=== PATIENT | female | born 1940 | race Hispanic/Latino ===

== ENCOUNTER 2019-04-04 21:34 | Inpatient (IN) | payer MEDICARE, MEDICAID ==
[2019-04-04] MEDS ORDERED: Sodium Chloride 0.9% 1,000 ML IV STA ×3 (21:43→21:54)
[2019-04-04] MEDS ORDERED: metroNIDAZOLE 500mg/100ml NS 100 ML IVPB STA (21:50)
[2019-04-04] MEDS ORDERED: metroNIDAZOLE 500mg/100ml NS 100 ML IVPB ONE (22:00)
--- NOTE | 2019-04-04 22:24 | ED PDOC ---
HPI: Abdomen Time Seen by Provider: 04/04/19 21:42 Chief Complaint (Nursing): Abdominal Pain Chief Complaint (Provider): GI Problem History Per: Patient History/Exam Limitations: no limitations Onset/Duration Of Symptoms: Days Current Symptoms Are (Timing): Still Present Additional Complaint(s): 78 y/o female with a PMHx of HTN and DM presents to the ED for ev aluation of weakness. Patient was recently hospitalized for about four days at [facility] for severe vomiting and diarrhea secondary to salmonella infection. Patient was discharged on Tuesday (about three days ago). Patient reports of taking Flagel today. Patient notes of having experienced multiple episodes of non-bloody, non-bilious acute vomiting and non-blood diarrhea associated with being extremely weak and dizziness. On arrival to the ER, patient was noted to be hypotensive. PMD: Sienna Garcia. Past Medical History Reviewed: Historical Data, Nursing Documentation, Vital Signs Vital Signs: Last Vital Signs Temp 98.0 F 04/04/19 21:37 Pulse 110 H 04/04/19 21:37 Resp 16 04/04/19 21:37 BP 61/35 L 04/04/19 21:37 Pulse Ox 94 L 04/04/19 21:37 Primary Care Provider: Sienna Garcia - Medical History PMH: Asthma, Diabetes, Gastritis, HTN Denies: Crohn's Disease, Diverticulitis, Gall Bladder Disease, HIV, Pancreatitis - Surgical History Surgical History: Appendectomy - Family History Family History: States: Unknown Family Hx - Social History Current smoker - smoking cessation education provided: No Alcohol: None Drugs: Denies - Home Medications Home Medications: Ambulatory Orders Medication Instructions Recorded Losartan [Cozaar] 50 mg PO DAILY 03/07/16 metFORMIN [glucOPHAGE] 850 mg PO BID 03/07/16 Atorvastatin 1 tab PO HS 03/27/19 Januvia 1 tab PO DAILY 03/27/19 Lantus 15 unit SQ HS 03/27/19 Metoprolol 1 tab PO DAILY 03/27/19 Gabapentin [Neurontin] 100 mg PO DAILY cap 03/31/19 - Allergies Allergies/Adverse Reactions: Allergies Allergy/AdvReac Type Severity Reaction Status Date / Time No Known Allergies Allergy Verified 04/04/19 21:37 Review of Systems ROS Statement: Except As Marked, All Systems Reviewed And Found Negative Constitutional: Positive for: Weakness Gastrointestinal: Positive for: Vomiting, Diarrhea Physical Exam - Reviewed Nursing Documentation Reviewed: Yes Vital Signs Reviewed: Yes - Physical Exam Appears: Positive for: No Acute Distress (but hypotensive) Head Exam: Positive for: ATRAUMATIC, NORMOCEPHALIC Skin: Positive for: Normal Color, Warm, Dry Eye Exam: Positive for: Normal appearance, EOMI, PERRL ENT: Negative for: Moist Mucous Membranes (Dry Mucous Membranes) Neck: Positive for: Normal, Painless ROM, Supple Cardiovascular/Chest: Positive for: Tachycardia (WITH REGULAR RHTYHM). Negative for: Murmur Respiratory: Positive for: Normal Breath Sounds. Negative for: Respiratory Distress Gastrointestinal/Abdominal: Positive for: Normal Exam, Soft. Negative for: Tenderness Back: Positive for: Normal Inspection. Negative for: L CVA Tenderness, R CVA Tenderness, Vertebral Tenderness Extremity: Positive for: Normal ROM. Negative for: Pedal Edema, Deformity Neurological/Psych: Positive for: Awake, Alert, Oriented (x3). Negative for: Motor/Sensory Deficits - Laboratory Results Result Diagrams: 04/04/19 23:05 04/04/19 23:05 - ECG ECG: Positive for: Interpreted By Me, Viewed By Me ECG Rhythm: Positive for: Sinus Tachycardia, Nonspecific Changes. Negative for: ST/T Changes Rate: 102 O2 Sat by Pulse Oximetry: 94 (RA) Pulse Ox Interpretation: Normal - Critical Care Total Time (In Min): 30 Documented Critical Care: Time excludes all time spent performint seperately billable procedures Medical Decision Making Medical Decision Making: Time: 2224 Impression: 78 y/o female with acute diarrheal illnes insetting of salmonella infection with clinical dehydration. Plan: -- EKG -- CMP -- Lact Acid, Plasma -- Lipase -- ED Urine Dipstick -- CBC with Differentials -- PTT -- Prothrombin Time -- Bentyl 20 mg PO -- Metronidazole 500mg/100ml IVPB -- Sodium Chloride IV 1000 mls/hr -- Sodium Chloride IV 1000 mls/hr -- Sodium Chloride IV 1000 mls/hr -- Zofran Inj 4 mg IV -- Blood Culture -- Stool Culture -- Heplock Insertion -- Accucheck Time: 8 --Labs reviewed: significant for (+) WBC. Low CO2 level consistent with dehydration secondary to salmonella infection. Upon provider re-evaluation, blood pressure is normalized after IV saline. Peptic treatment and repeat lac ac id initiated. Case discussed with Dr. Garcia who accepts patient under his medical services for further management as sepsis criteria is met. Patient is medically stable for admission at this time. Findings and plan were discussed with patient who verbalizes understanding. Counseling was provided and all questions were answered regarding diagnosis. There is agreement to discharge plan. Return precautions discussed. Clinical Impression: dehydration; lact acid acidosis; salmonella enteritis Scribe Attestation: Documented by Andrea Armas and Yasmine Culver, acting as scribes Dc Callaway MD. Provider Scribe Attestation: All medical record entries made by the Scribe were at my direction and personally dictated by me. I have reviewed the chart and agree that the record accurately reflects my personal performance of the history, physical exam, medical decision making, and the department course for this patient. I have also personally directed, reviewed, and agree with the discharge instructions and disposition. Disposition - Clinical Impression Clinical Impression: Dehydration, Salmonella enteritis, Lactic acid acidosis - Patient ED Disposition Is Patient to be Admitted: Yes Discussed With DrNeville: Sienna Garcia Doctor Will See Patient In The: Hospital Counseled Patient/Family Regarding: Studies Performed, Diagnosis - Disposition Disposition Time: 23:48 Condition: FAIR
[2019-04-04] MEDS ORDERED: Ciprofloxacin 400mg/200ml D5W 400 MG/200 ML BAG IV STA (22:27)
[2019-04-04 23:10] LABS: BASO % 0.2 % (0.0-2.0); EOS # 0.4 K/uL (0.0-0.7); EOS % 2.7 % (0.0-4.0); HEMOGLOBIN 11.4 g/dL (12.0-16.0); LYMPH # 7.4 K/uL (1.0-4.3); MEAN CELL VOLUME 93.7 fl (81.0-99.0); MEAN CORPUSCULAR HEMOGLOBIN 30.1 pg (27.0-31.0); MEAN CORPUSCULAR HGB CONC 32.1 g/dL (33.0-37.0); MEAN PLATELET VOLUME 7.7 fl (7.2-11.7); MONO # 0.6 K/uL (0.0-0.8); MONO % 3.7 % (0.0-10.0); NEUT # 6.7 K/uL (1.8-7.0); NEUT % 44.4 % (50.0-75.0); RBC 3.79 Mil/uL (3.80-5.20); RED CELL DISTRIBUTION WIDTH 13.5 % (11.5-14.5); WHITE BLOOD COUNT 15.1 K/uL (4.8-10.8)
[2019-04-04] MEDS ORDERED: Ciprofloxacin 400mg/200ml D5W 400 MG/200 ML BAG IVPB ONE (23:17)
[2019-04-04 23:19] LABS: INR 1.1; PROTHROMBIN TIME 12.1 Seconds (9.8-13.1)
[2019-04-04 23:21] LABS: PARTIAL THROMBOPLASTIN TIME 31.4 Seconds (25.6-37.1)
[2019-04-04 23:22] LABS: ALB/GLOB RATIO 1.2 (1.0-2.1); ALBUMIN 4.1 g/dL (3.5-5.0); ALT/SGPT 28 U/L (9-52); AST/SGOT 35 U/L (14-36); BLOOD UREA NITROGEN 27 mg/dl (7-17); CALCIUM 9.5 mg/dL (8.4-10.2); GFR NON-AFRICAN AMERICAN 31; LIPASE 352 U/L (23-300)
[2019-04-05] MEDS ORDERED: Sodium Chloride 0.9% 1,000 ML IV STA (00:38)
[2019-04-05] MEDS ORDERED: Ciprofloxacin 400mg/200ml D5W 400 MG/200 ML BAG IV STA (01:16)
[2019-04-05 01:59] VITALS: BMI 21.1
[2019-04-05] MEDS: Sodium Chloride 0.9% 1,000 ML IV SCH ×2 (06:51→16:31)
[2019-04-05] MEDS: Insulin Lispro (humaLOG) 100 Units/ml Inj SC SCH ×4 (08:47→22:11)
[2019-04-05] MEDS: metroNIDAZOLE 500mg/100ml NS 100 ML IVPB SCH ×2 (08:47→16:29)
[2019-04-05] MEDS: Metoprolol Succinate 25 mg XL Tab PO SCH (08:49)
--- NOTE | 2019-04-05 10:25 | CP.PCM.CON ---
History of Present Illness - History of Present Illness History of Present Illness: Infectious Disease Consultation- Asked to see this patient at the request of for salmonella enteritis. HPI- History obtained from patient her daughter who is at her bedside and medical chart. Patient is a 78 year old female with PMH of DM II, HTN who is admitted for weakness, dizziness and diarrhea and vomiting. Patient was recently d/c from [facility] for similar symptoms where she was found to have salmonella in her stool cx and colitis as per her CT report. she was treated with IV cipro and flagyl as her salmonella was reported sensitive to the cipro and was d/c home on oral flagyl and cipro but was admitted here last night because she developed diarrhea again with blood tinged stool and weakness and dizziness. She denies any fever or chills. denies any sob or cough, denies any chest pain but c/o abdominal discomfort. she denies any diarrhea so far today. she had traveled to [facility] in january to visit her family but no other recent trabvel , no change in her diet and no sick contacts. denies any allergies to food or medications. She states so far today she has been able to tolerate liquid diet. she also explain she ahd colonoscopy last year and was told it was fine. Review of Systems - Review of Systems Review of Systems: ROS- \Please see ROS in HPI Past Patient History - Past Medical History & Family History Past Medical History?: Yes - Past Social History Smoking Status: Never Smoked Alcohol: None Drugs: Denies Home Situation {Lives}: With Family - CARDIAC Hx Hypertension: Yes - PULMONARY Hx Respiratory Disorders: Yes Hx Asthma: Yes - NEUROLOGICAL Hx Neurological Disorder: No - HEENT Hx HEENT Problems: No - RENAL Hx Chronic Kidney Disease: No - ENDOCRINE/METABOLIC Hx Endocrine Disorders: Yes Hx Diabetes Mellitus Type 2: Yes (B/L NEUROPATHY) - HEMATOLOGICAL/ONCOLOGICAL Hx Blood Disorders: No - INTEGUMENTARY Hx Dermatological Problems: No - MUSCULOSKELETAL/RHEUMATOLOGICAL Hx Musculoskeletal Disorders: No Hx Falls: No - GASTROINTESTINAL Hx Gastrointestinal Disorders: Yes Hx Crohn's Disease: No Hx Diverticulitis: No Hx Gall Bladder Disease: No Hx Gastritis: Yes Hx Pancreatitis: No - GENITOURINARY/GYNECOLOGICAL Hx Genitourinary Disorders: No - PSYCHIATRIC Hx Psychophysiologic Disorder: No Hx Substance Use: No - SURGICAL HISTORY Hx Surgeries: Yes Hx Appendectomy: Yes - ANESTHESIA Hx Anesthesia: Yes Hx Anesthesia Reactions: No Hx Malignant Hyperthermia: No Meds Allergies/Adverse Reactions: Allergies Allergy/AdvReac Type Severity Reaction Status Date / Time No Known Allergies Allergy Verified 04/04/19 21:37 - Medications Medications: Current Medications Acetaminophen (Tylenol 325mg Tab) 325 mg PO Q6 PRN PRN Reason: Pain, Mild (1-3) Acetaminophen (Tylenol 325mg Tab) 650 mg PO Q6 PRN PRN Reason: Pain, moderate (4-7) Metronidazole (Flagyl 500mg/100ml Ns) 100 mls @ 100 mls/hr IVPB Q8 LUIZ; Protocol Last Admin: 04/05/19 08:47 Dose: 100 mls/hr Ciprofloxacin (Cipro 400mg/200ml Dsw) 400 mg in 200 mls @ 200 mls/hr IVPB Q12 LUIZ; Protocol Sodium Chloride (Sodium Chloride 0.9%) 1,000 mls @ 100 mls/hr IV .Q10H LUIZ Stop: 04/06/19 06:43 Last Admin: 04/05/19 06:51 Dose: 100 mls/hr Insulin Human Lispro (Humalog) 0 units SC QID LUIZ; Protocol Last Admin: 04/05/19 08:47 Dose: 2 units Ketorolac Tromethamine (Toradol) 15 mg IVP Q6 PRN PRN Reason: Pain, severe (8-10) Last Admin: 04/05/19 09:02 Dose: 15 mg Metoprolol Succinate (Toprol Xl) 25 mg PO DAILY [facility] Last Admin: 04/05/19 08:49 Dose: 25 mg Physical Exam - Constitutional Appears: No Acute Distress - Head Exam Head Exam: ATRAUMATIC - Eye Exam Eye Exam: EOMI - ENT Exam ENT Exam: Normal Oropharynx - Neck Exam Neck exam: Positive for: Full Rom - Respiratory Exam Respiratory Exam: Clear to Auscultation Bilateral, NORMAL BREATHING PATTERN - Cardiovascular Exam Cardiovascular Exam: RRR, +S1, +S2 - GI/Abdominal Exam GI & Abdominal Exam: Normal Bowel Sounds, Soft Additional comments: No distention slight dicomfort in epigastric region with palpation no guarding, no rebound - Extremities Exam Extremities exam: Positive for: normal inspection - Neurological Exam Neurological exam: Alert, Oriented x3 Results - Vital Signs Recent Vital Signs: Last Vital Signs Temp 97.8 F 04/05/19 08:11 Pulse 84 04/05/19 08:49 Resp 19 04/05/19 08:11 BP 126/66 04/05/19 08:49 Pulse Ox 98 04/05/19 08:11 - Labs Result Diagrams: 04/05/19 10:50 04/05/19 10:50 Labs: Laboratory Results - last 24 hr 04/04/19 04/04/19 04/04/19 21:37 23:05 23:05 WBC 15.1 H RBC 3.79 L Hgb 11.4 L Hct 35.5 MCV 93.7 MCH 30.1 MCHC 32.1 L RDW 13.5 Plt Count 451 H D MPV 7.7 Neut % (Auto) 44.4 L Lymph % (Auto) 49.0 H [place] % (Auto) 3.7 Eos % (Auto) 2.7 Baso % (Auto) 0.2 Neut # (Auto) 6.7 Lymph # (Auto) 7.4 H [place] # (Auto) 0.6 Eos # (Auto) 0.4 Baso # (Auto) 0.0 PT INR APTT Sodium 134 Potassium 4.1 Chloride 99 Carbon Dioxide 17 L Anion Gap 22 H BUN 27 H Creatinine 1.6 H Est GFR ( Amer) 38 Est GFR (Non-Af Amer) 31 POC Glucose (mg/dL) 277 H Random Glucose 261 H Lactic Acid Calcium 9.5 Total Bilirubin 0.4 AST 35 ALT 28 Alkaline Phosphatase 70 Troponin I < 0.0120 Total Protein 7.5 Albumin 4.1 Globulin 3.4 Albumin/Globulin Ratio 1.2 Lipase 352 H 04/04/19 04/04/19 04/05/19 23:05 23:05 00:11 WBC RBC Hgb Hct MCV MCH MCHC RDW Plt Count MPV Neut % (Auto) Lymph % (Auto) [place] % (Auto) Eos % (Auto) Baso % (Auto) Neut # (Auto) Lymph # (Auto) [place] # (Auto) Eos # (Auto) Baso # (Auto) PT 12.1 INR 1.1 APTT 31.4 Sodium Potassium Chloride Carbon Dioxide Anion Gap BUN Creatinine Est GFR ( Amer) Est GFR (Non-Af Amer) POC Glucose (mg/dL) Random Glucose Lactic Acid 6.5 H* 2.7 H Calcium Total Bilirubin AST ALT Alkaline Phosphatase Troponin I Total Protein Albumin Globulin Albumin/Globulin Ratio Lipase 04/05/19 05:13 WBC RBC Hgb Hct MCV MCH MCHC RDW Plt Count MPV Neut % (Auto) Lymph % (Auto) [place] % (Auto) Eos % (Auto) Baso % (Auto) Neut # (Auto) Lymph # (Auto) [place] # (Auto) Eos # (Auto) Baso # (Auto) PT INR APTT Sodium Potassium Chloride Carbon Dioxide Anion Gap BUN Creatinine Est GFR ( Amer) Est GFR (Non-Af Amer) POC Glucose (mg/dL) 154 H Random Glucose Lactic Acid Calcium Total Bilirubin AST ALT Alkaline Phosphatase Troponin I Total Protein Albumin Globulin Albumin/Globulin Ratio Lipase No Known Allergies Allergy (Verified 04/04/19 21:37) Microbiology 03/28/19 17:09 Blood Blood Culture - Final 03/28/19 17:09 Blood Gram Stain - Final NO GROWTH AFTER 5 DAYS TEST NOT PERFORMED 03/28/19 17:09 Blood Blood Culture - Final 03/28/19 17:09 Blood Gram Stain - Final NO GROWTH AFTER 5 DAYS TEST NOT PERFORMED 03/28/19 12:23 Stool Stool Culture - Final Salmonella Group G 03/27/19 18:13 Blood Blood Culture - Final 03/27/19 18:13 Blood Gram Stain - Final NO GROWTH AFTER 5 DAYS TEST NOT PERFORMED 03/27/19 18:13 Blood Blood Culture - Final 03/27/19 18:13 Blood Gram Stain - Final NO GROWTH AFTER 5 DAYS TEST NOT PERFORMED Accession No. : [id number] Patient Name / ID : SHARLA TOPETE V / [id number] Exam Date : 03/28/2019 16:22:10 ( Approved ) Study Comment : Sex / Age : F / 78Y Creator : Ruth Garcia Dictator : Willi Lebron MD Forensic Examiner : Core Analysis Operator : Willi Lebron MD Approver2 : Report Date : 03/28/2019 16:33:12 My Comment : Date of service: 03/28/2019 PROCEDURE: CT Abdomen and Pelvis with contrast HISTORY: ABDOMINAL PAIN / FEVER COMPARISON: None. TECHNIQUE: Oral contrast only. Radiation dose: Total exam DLP = 507.51 mGy-cm. This CT exam was performed using one or more of the following dose reduction techniques: Automated exposure control, adjustment of the mA and/or kV according to patient size, and/or use of iterative reconstruction technique. FINDINGS: LOWER THORAX: Unremarkable. LIVER: Unremarkable. No gross lesion or ductal dilatation. GALLBLADDER AND BILE DUCTS: Unremarkable. PANCREAS: Unremarkable. No gross lesion or ductal dilatation. SPLEEN: Unremarkable. ADRENALS: Unremarkable. No mass. KIDNEYS AND URETERS: Unremarkable. No hydronephrosis. No solid mass. VASCULATURE: Unremarkable. No aortic aneurysm. No atherosclerotic calcification or mural plaque present. BOWEL: Severe miranda colitis. Terminal ileitis. No evidence mechanical obstruction. A gastric wall thickening accentuated by under filling. APPENDIX: A normal appendix is visualized in it's entirety. PERITONEUM: Unremarkable. No free fluid. No free air. LYMPH NODES: Unremarkable. No enlarged lymph nodes. BLADDER: Unremarkable. REPRODUCTIVE: Left adnexal cyst 4.2 x 5.5 cm. BONES: No acute fracture. OTHER FINDINGS: Inflammatory changes cutaneous and subcutaneous region adjacent to the perineum and inferior to the gluteal muscles. No adjacent associated decubitus ulcer. IMPRESSION: Severe miranda colitis. Severe ileitis. No evidence of obstructing lesion. Despite collapsed state of the stomach, there is mucosal thickening likely reflective of a component of gastritis. Assessment & Plan (1) Salmonella enteritis Status: Acute (2) Gastroenteritis Status: Acute (3) Colitis Status: Acute (4) Dehydration Status: Acute - Assessment and Plan (Free Text) Assessment: A/P- 78 year old female with DM II, HTN recently d/c from [facility] for salmonella enteritis , who is now admitted here for weakness, dehydration, kim rrhea with some blood tinged stool and abd cramps. leukocytosis and elevated lactic acid on admission but the wbc is trending down to normal now. advise to continue current antibiotics cipro and flagyl. check stool C.Diff toxin A and B. IV hydration as per PCP. check another stool cx. if no improvement can swith to zithromax since some salmonella could be resistant to cipro ( but based on micro report it was sensitive). ALl labs and imaging and chart notes reviewed. Thank you for allowing me to take part in the care of this patient.
[2019-04-05 10:58] LABS: BASO # 0.1 K/uL (0.0-0.2); BASO % 0.4 % (0.0-2.0); EOS # 0.3 K/uL (0.0-0.7); EOS % 2.2 % (0.0-4.0); HEMOGLOBIN 10.3 g/dL (12.0-16.0); MEAN CELL VOLUME 93.1 fl (81.0-99.0); MEAN CORPUSCULAR HEMOGLOBIN 30.6 pg (27.0-31.0); MEAN CORPUSCULAR HGB CONC 32.9 g/dL (33.0-37.0); MEAN PLATELET VOLUME 6.7 fl (7.2-11.7); MONO # 0.8 K/uL (0.0-0.8); NEUT # 8.6 K/uL (1.8-7.0); NEUT % 73.4 % (50.0-75.0); RBC 3.36 Mil/uL (3.80-5.20); RED CELL DISTRIBUTION WIDTH 13.7 % (11.5-14.5); WHITE BLOOD COUNT 11.7 K/uL (4.8-10.8)
--- NOTE | 2019-04-05 11:30 | CARD ---
APPROVED REPORT Date of service: 04/04/2019 EKG Measurement Heart [id number] <Conclusion> Sinus tachycardia Nonspecific ST abnormality Abnormal ECG
[2019-04-05 11:38] LABS: ALB/GLOB RATIO 1.1 (1.0-2.1); ALBUMIN 3.2 g/dL (3.5-5.0); ALT/SGPT 32 U/L (9-52); AST/SGOT 26 U/L (14-36); BLOOD UREA NITROGEN 16 mg/dl (7-17); CALCIUM 7.6 mg/dL (8.4-10.2); GFR NON-AFRICAN AMERICAN 54
[2019-04-05] MEDS: Ciprofloxacin 400mg/200ml D5W 400 MG/200 ML BAG IVPB SCH ×2 (12:11→20:32)
[2019-04-05] MEDS ORDERED: ATORVASTATIN PO SCH (22:00)
[2019-04-05] MEDS: Insulin Detemir 100 Units/ml Inj SC SCH (22:17)
[2019-04-06] MEDS: metroNIDAZOLE 500mg/100ml NS 100 ML IVPB SCH ×3 (00:09→17:53)
[2019-04-06] MEDS: Sodium Chloride 0.9% 1,000 ML IV SCH ×2 (03:45)
--- NOTE | 2019-04-06 05:32 | HP ---
HISTORY OF PRESENT ILLNESS: This is a 78-year-old female with history of type 2 diabetes mellitus, on multiple medications, presented to emergency room with symptoms of abdominal pain, bloody diarrhea and vomiting. The patient was recently discharged from [facility] after an acute care for colitis/enteritis secondary to Salmonella infection. The patient was discharged home on both Cipro and Flagyl. The patient stated that she has been compliant to medications. The patient was evaluated in the emergency room and due to her previous history, she was admitted for further management. Other review of systems is negative. ALLERGIES: NO KNOWN ALLERGY. MEDICATIONS: As per MAR were reviewed and ordered. SOCIAL HISTORY: No history of smoking, EtOH or substance abuse. FAMILY HISTORY: Noncontributory. PHYSICAL EXAMINATION: GENERAL: The patient is in bed and not in any cardiopulmonary distress. VITAL SIGNS: Blood pressure 132/70, temperature 98.5, respiratory rate 20 and pulse 84. HEENT: Pupils equal, reactive to light. Normal-appearing mucosa of the conjunctivae, oropharynx and nasal membrane mucosa. NECK: Supple. No JVD. No carotid bruit. No lymph node. No thyromegaly. CHEST AND LUNGS: Bilateral symmetrical expansion. Good air exchange. No rales, no rhonchi. CARDIOVASCULAR SYSTEM: PMI not localized. S1, S2. No additional sounds. ABDOMEN: Normoactive bowel sounds. No tenderness, no organomegaly. No masses. EXTREMITIES: No cyanosis, no clubbing, no edema. CENTRAL NERVOUS SYSTEM: Alert, awake, oriented x2. No neurological deficits could be appreciated. ASSESSMENT: 1. Colitis/enteritis with stool positive for Salmonella. 2. History of type 2 diabetes mellitus. PLAN: Continue current medications. Follow ID recommendations. Continue both Cipro and Flagyl. Advance diet as tolerated. Sienna Garcia MD
[2019-04-06] MEDS: Metoprolol Succinate 25 mg XL Tab PO SCH (09:08)
[2019-04-06] MEDS: Ciprofloxacin 400mg/200ml D5W 400 MG/200 ML BAG IVPB SCH ×2 (09:08→21:22)
[2019-04-06] MEDS: Insulin Lispro (humaLOG) 100 Units/ml Inj SC SCH ×4 (09:09→21:22)
--- NOTE | 2019-04-06 14:08 | CP.PCM.PN ---
Subjective - Date & Time of Evaluation Date of Evaluation: 04/06/19 Time of Evaluation: 14:07 - Subjective Subjective: no overnight events Objective - Vital Signs/Intake and Output Vital Signs (last 24 hours): Temp Pulse Resp BP Pulse Ox 98.4 F 85 19 144/72 99 04/06/19 07:41 04/06/19 09:08 04/06/19 07:41 04/06/19 09:08 04/06/19 07:41 - Medications Medications: Current Medications Acetaminophen (Tylenol 325mg Tab) 325 mg PO Q6 PRN PRN Reason: Pain, Mild (1-3) Acetaminophen (Tylenol 325mg Tab) 650 mg PO Q6 PRN PRN Reason: Pain, moderate (4-7) Atorvastatin Calcium (Lipitor) 20 mg PO HS [facility] Last Admin: 04/05/19 22:17 Dose: 20 mg Gabapentin (Neurontin) 100 mg PO DAILY [facility] Last Admin: 04/06/19 09:07 Dose: 100 mg Metronidazole (Flagyl 500mg/100ml Ns) 100 mls @ 100 mls/hr IVPB Q8 LUIZ; Protocol Last Admin: 04/06/19 09:08 Dose: 100 mls/hr Ciprofloxacin (Cipro 400mg/200ml Dsw) 400 mg in 200 mls @ 200 mls/hr IVPB Q12 LUIZ; Protocol Last Admin: 04/06/19 09:08 Dose: 200 mls/hr Insulin Detemir (Levemir) 15 units SC HS [facility] Last Admin: 04/05/19 22:17 Dose: 15 u Insulin Human Lispro (Humalog) 0 units SC QID LUIZ; Protocol Last Admin: 04/06/19 12:54 Dose: Not Given Ketorolac Tromethamine (Toradol) 15 mg IVP Q6 PRN PRN Reason: Pain, severe (8-10) Last Admin: 04/05/19 22:20 Dose: 15 mg Losartan Potassium (Cozaar) 50 mg PO DAILY [facility] Last Admin: 04/06/19 09:07 Dose: 50 mg Metoprolol Succinate (Toprol Xl) 25 mg PO DAILY [facility] Last Admin: 04/06/19 09:08 Dose: 25 mg - Labs Labs: 04/05/19 10:50 04/05/19 10:50 PT 12.1 Seconds (9.8-13.1) 04/04/19 23:05 INR 1.1 04/04/19 23:05 APTT 31.4 Seconds (25.6-37.1) 04/04/19 23:05 - Head Exam Head Exam: NORMOCEPHALIC - Neck Exam Neck Exam: Normal Inspection - Respiratory Exam Respiratory Exam: Clear to Ausculation Bilateral, NORMAL BREATHING PATTERN - Cardiovascular Exam Cardiovascular Exam: REGULAR RHYTHM - GI/Abdominal Exam GI & Abdominal Exam: Soft, Normal Bowel Sounds Assessment and Plan - Assessment and Plan (Free Text) Assessment: 78 yo female woth salmonella enetritis abx per id adat dc planning once able
[2019-04-06] MEDS: Insulin Detemir 100 Units/ml Inj SC SCH (21:24)
[2019-04-07] MEDS: metroNIDAZOLE 500mg/100ml NS 100 ML IVPB SCH ×3 (00:30→17:18)
--- NOTE | 2019-04-07 00:48 | PN ---
DATE: 04/06/2019 SUBJECTIVE: The patient is seen today, on 04/06/2019. She is having less abdominal pain as well as no bloody diarrhea today. PHYSICAL EXAMINATION: VITAL SIGNS: Blood pressure 129/69, temperature 97.8, respiratory rate 18, and pulse 75. HEENT: Pupils equal, reactive to light. Normal-appearing mucosa of the conjunctivae, oropharynx and nasal membrane mucosa. NECK: Supple. No JVD. No carotid bruit. No lymph node. No thyromegaly. CHEST AND LUNGS: Bilateral symmetrical expansion. Good air exchange. No rales, no rhonchi. CARDIOVASCULAR SYSTEM: PMI not localized. S1, S2. No additional sounds. ABDOMEN: Normoactive bowel sounds. No tenderness, no organomegaly. No masses. EXTREMITIES: No cyanosis, no clubbing, no edema. CAGE OPERATOR: Alert, awake, oriented x2. No neurological deficit could be appreciated. ASSESSMENT: 1. Salmonella colitis/enteritis. 2. Type 2 diabetes mellitus. 3. Dehydration. PLAN: We will continue IV antibiotics as per ID recommendations. We will stop IV fluids and advance diet as tolerated. Continue Accu-Cheks with insulin coverage. Sienna Garcia MD
[2019-04-07] MEDS: Ciprofloxacin 400mg/200ml D5W 400 MG/200 ML BAG IVPB SCH ×2 (09:52→22:00)
[2019-04-07] MEDS: Metoprolol Succinate 25 mg XL Tab PO SCH (09:53)
[2019-04-07] MEDS: Insulin Lispro (humaLOG) 100 Units/ml Inj SC SCH ×4 (09:55→21:31)
[2019-04-07] MEDS: Insulin Detemir 100 Units/ml Inj SC SCH (21:33)
[2019-04-08] MEDS: metroNIDAZOLE 500mg/100ml NS 100 ML IVPB SCH ×3 (01:06→17:15)
[2019-04-08] MEDS: Ciprofloxacin 400mg/200ml D5W 400 MG/200 ML BAG IVPB SCH (08:56)
[2019-04-08] MEDS: Insulin Lispro (humaLOG) 100 Units/ml Inj SC SCH ×4 (08:57→21:37)
[2019-04-08] MEDS: Metoprolol Succinate 25 mg XL Tab PO SCH (08:58)
--- NOTE | 2019-04-08 12:35 | PN ---
DATE: 04/07/2019 SUBJECTIVE: She did not have diarrhea or vomiting and so far tolerated diet. PHYSICAL EXAMINATION: VITAL SIGNS: Blood pressure 122/63, temperature 97.8, respiratory rate 18 and pulse 71. HEENT: Pupils equal, reactive to light. Normal-appearing mucosa of the conjunctivae, oropharynx and nasal membrane mucosa. NECK: Supple. No JVD. No carotid bruit. No lymph node. No thyromegaly. CHEST AND LUNGS: Bilateral symmetrical expansion. Good air exchange. No rales, no rhonchi. CARDIOVASCULAR: PMI not localized. S1, S2. No additional sounds. ABDOMEN: Normoactive bowel sounds. No tenderness, no organomegaly. No masses. EXTREMITIES: No cyanosis, no clubbing, no edema. CENTRAL NERVOUS SYSTEM: Alert, awake, oriented x2. No neurological deficit could be appreciated. ASSESSMENT: 1. Salmonella-induced colitis/enteritis. 2. History of type 2 diabetes mellitus. 3. Status post severe dehydration with acute kidney injury and hypotension with lactic acidosis. PLAN: Intravenous fluid is stopped as the patient is well hydrated and renal function returned back to normal and the patient is tolerating diet. Continue Cipro and Flagyl and follow Infectious Disease recommendations. Continue Accu-Cheks with insulin coverage. Sienna Garcia MD
[2019-04-08] MEDS: Insulin Detemir 100 Units/ml Inj SC SCH (21:37)
[2019-04-09] MEDS: metroNIDAZOLE 500mg/100ml NS 100 ML IVPB SCH ×3 (00:06→16:49)
[2019-04-09 08:09] VITALS: O2SAT 99
--- NOTE | 2019-04-09 08:49 | CON ---
DATE: 04/05/2019 REFERRING PHYSICIAN: Dr. Garcia. REASON FOR CONSULTATION: Abdominal pain. HISTORY OF PRESENT ILLNESS: This is a 78-year-old female with history of hypertension, diabetes, comes in for weakness over the past three to four days. Had recently been admitted for Salmonella enteritidis at an outside hospital. Now complaining of nausea, vomiting, some diarrhea, all seems getting better. The patient is currently lying in bed, comfortable, in no apparent distress. PAST MEDICAL HISTORY: As above. PAST SURGICAL HISTORY: As above. MEDICATIONS: Have been reviewed. REVIEW OF SYSTEMS: All other systems have been reviewed and negative apart from the HPI. PHYSICAL EXAMINATION: VITAL SIGNS: Here in the hospital are grossly unremarkable. GENERAL: This is a pleasant elderly-appearing female, lying in bed comfortably, in no apparent distress. HEENT: Head: Normocephalic and atraumatic. Eyes: Pupils are equally reactive to light bilaterally. No conjunctival pallor or icterus. NECK: Supple. Normal range of motion now. LUNGS: Coarse breath sounds bilaterally. HEART: S1 and S2. Regular rate and rhythm. No murmurs appreciated. ABDOMEN: Soft and nontender. Bowel sounds present. No rebound. No guarding. RECTAL: Deferred. EXTREMITIES: Pulses present bilaterally. SKIN: Warm, dry, and intact. NEUROLOGIC: A and O x3. LABORATORY DATA: Labs and radiology have been reviewed. Labs include WBC 11.7, down from 15.1. Hemoglobin is 10.3 and stable. Lactic acid is improved at 2.7. Recent CAT scan shows enteritis. ASSESSMENT AND PLAN: This is a 78-year-old female with Salmonella enteritidis. From [facility], put the patient on antibiotics for now. Advance diet as tolerated. Thank you for the consult. Doyle Crook MD/ PhD cc: Dr. Garcia.
[2019-04-09] MEDS: Insulin Lispro (humaLOG) 100 Units/ml Inj SC SCH ×3 (09:19→16:49)
[2019-04-09] MEDS: Metoprolol Succinate 25 mg XL Tab PO SCH (09:21)
[2019-04-09 14:36] LABS: HEMOGLOBIN 9.7 g/dL (12.0-16.0); MEAN CELL VOLUME 91.8 fl (81.0-99.0); MEAN CORPUSCULAR HEMOGLOBIN 30.7 pg (27.0-31.0); MEAN CORPUSCULAR HGB CONC 33.5 g/dL (33.0-37.0); RBC 3.16 Mil/uL (3.80-5.20); RED CELL DISTRIBUTION WIDTH 13.5 % (11.5-14.5); WHITE BLOOD COUNT 16.6 K/uL (4.8-10.8)
[2019-04-09 14:54] LABS: ALB/GLOB RATIO 1.1 (1.0-2.1); ALBUMIN 3.3 g/dL (3.5-5.0); ALT/SGPT 29 U/L (9-52); AST/SGOT 36 U/L (14-36); BLOOD UREA NITROGEN 12 mg/dl (7-17); CALCIUM 8.6 mg/dL (8.4-10.2); GFR NON-AFRICAN AMERICAN 54
[2019-04-09 15:47] VITALS: BP 112/65; PULSE 67; RESP 20; TEMP 98
[2019-04-09] MEDS ORDERED: Ciprofloxacin 400mg/200ml D5W 400 MG/200 ML BAG IVPB SCH (21:00)
--- NOTE | 2019-04-10 05:13 | DS ---
REASON FOR ADMISSION: This is a 78-year-old female who was admitted through emergency room for sepsis secondary to colitis/enteritis. COURSE OF HOSPITALIZATION: The patient was admitted to medical floor, and she was started on both IV fluids. The patient was hypotensive and severely dehydrated on admission due to vomiting and diarrhea. The patient was recently discharged from [facility] where she was diagnosed by Salmonella enteritis. The patient was on Cipro and Flagyl at home when she started developed frequent vomiting and hypokalemia. Electrolytes were supplemented. The patient was continued on both Flagyl and Cipro, and she had an ID consult done by Dr. Ortega. The patient's symptoms completely resolved, and repeated culture was not was negative. The patient was discharged home to continue Cipro and Flagyl for four more days and probiotic also and to follow up with Dr. Garcia in one week. FINAL DIAGNOSES: 1. Sepsis present on admission. 2. Enteritis/colitis. 3. Type 2 diabetes mellitus. [facility] MD Jose
== END 2019-04-09 17:34 | disposition home or self-care (01) | DRG 872 ==
LOC: H.ER 21:34 → H.ERHOLD 23:52 → H.MEDSURG1 04-05 01:49
PROVIDERS: ADMIT Internal Medicine; ATTEND Internal Medicine
DX: A41.9 Sepsis, unspecified organism (principal); A02.0 Salmonella enteritis; E87.2 Acidosis; N17.9 Acute kidney failure, unspecified; E86.0 Dehydration; E11.40 Type 2 diabetes mellitus with diabetic neuropathy, unspecified; E87.6 Hypokalemia; I10 Essential (primary) hypertension; J45.909 Unspecified asthma, uncomplicated; K29.70 Gastritis, unspecified, without bleeding; Z79.4 Long term (current) use of insulin; Z79.84 Long term (current) use of oral hypoglycemic drugs; Z79.899 Other long term (current) drug therapy; I95.9 Hypotension, unspecified